=== PATIENT | male | born 1970 | race Two or more races ===

== ENCOUNTER 2022-09-21 19:30 | Emergency (ER) | payer OTHER, SELFPAY ==
[2022-09-21 19:38] VITALS: BP 122/79; PULSE 79; RESP 16; TEMP 36.6; O2SAT 98; BMI 33.1
--- NOTE | 2022-09-21 19:40 | ED.NURSE ---
Patient's right ear irrigated with 250ml warm water. Large amount of yellow brown material was flushed out.
--- NOTE | 2022-09-21 19:51 | ED_ITS ---
HPI - General Adult General Chief complaint: Ear/Nose/Throat Problem Stated complaint: right ear pain Time Seen by Provider: 09/21/22 19:40 Source: patient and family Mode of arrival: ambulatory Limitations: no limitations History of Present Illness HPI narrative: 51-year-old male coming in today complaining of ear pain. Patient states that has been going on for about 2 weeks. He was seen in [place] on the 12 of September prescribed Ciprodex ear drops. States he has been using any felt he got little bit better but then his symptoms returned. He complains of discomfort on the right side and muffled hearing. No other systemic symptoms. Related Data Previous Rx's Medication Instructions Recorded [id number] 3.3 4 drp otic (ear) 5XD 7 days #10 mL 09/21/22 mg-3 mg-10 mg-0.5 mg/mL ear drops,susp (Cortisporin-TC) Allergies Allergy/AdvReac Type Severity Reaction Status Date / Time No Known Drug Allergies Allergy Verified 09/21/22 19:38 Review of Systems Status of ROS: Reports: 10 or more systems reviewed and unremarkable except as noted in History and below Exam Narrative: Exam Narrative: Well-nourished well-developed patient in no acute distress. Alert and oriented. Answers questions appropriately. Mood and affect are appropriate. Patient speaks in full sentences without needing to catch his breath. Voice sounds normal. HEENT: Normocephalic atraumatic. Pupils are equally round reactive to light. Extraocular muscles are intact. Conjunctivae are moist without any icterus noted. Moist mucous membranes. Posterior pharynx is normal. Neck is soft. Left TM is normal. Right TM is obscured by a lot of debris that is whitish in color. His ear canal does not appear to be swollen or Rian 10 did. Skin: Well perfused without any obvious rashes. Const: Vital Signs, click to edit/add: Vital Signs - 24 hr 09/21/22 19:38 Temperature 97.8 F Pulse Rate [Left P ulse Oximeter] 79 Respiratory Rate 16 Blood Pressure [Ri ght Upper Arm] 122/79 Pulse Oximetry 98 Oxygen Delivery Me thod Room Air Course Course Hospital Course: The right ear was irrigated with a large amount of debris cleaned out. Re-ex amination reveals white cell debris still present in the ear canal. Ear drum is irritated but there does not appear to be any fluid behind the eardrum. Exam is consistent with an otitis externa. Vital Signs Vital signs: Initial Vital Signs Temperature 97.8 F 09/21/22 19:38 Temperature Source Temporal Artery Scan 09/21/22 19:38 Pulse Rate 79 09/21/22 19:38 Pulse Rhythm Regular 09/21/22 19:38 Respiratory Rate 16 09/21/22 19:38 Blood Pressure 122/79 09/21/22 19:38 Blood Pressure Mean 93 09/21/22 19:38 Blood Pressure Position Sitting 09/21/22 19:38 Pulse Oximetry 98 09/21/22 19:38 Oxygen Delivery Method Room Air 09/21/22 19:38 Vital Signs Temperature 97.8 F 09/21/22 19:38 Pulse Rate 79 09/21/22 19:38 Respiratory Rate 16 09/21/22 19:38 Blood Pressure 122/79 09/21/22 19:38 Pulse Oximetry 98 09/21/22 19:38 Oxygen Delivery Method Room Air 09/21/22 19:38 Temperature 97.8 F 09/21/22 19:38 Pulse Rate 79 09/21/22 19:38 Respiratory Rate 16 09/21/22 19:38 Blood Pressure 122/79 09/21/22 19:38 Pulse Oximetry 98 09/21/22 19:38 Oxygen Delivery Method Room Air 09/21/22 19:38 Medical Decision Making MDM Narrative Medical decision making narrative: 51-year-old male with a right-sided otitis externa. Patient was given Ciprodex ear drops last week however he was only using them twice a day. We discussed using in 5 times a day, lying on his side for 10 minutes after using it each time to wait for the medicine to penetrate. Patient understands these directions, has no other concerns and will follow up with primary care in 7-10 days if he is not improving. Discharge Plan Discharge Clinical Impression: Otitis externa Patient Disposition: Home, Self-Care Condition: Stable Additional Instructions: Use medications 5 times per day. Lay on your left side when he use the medication use 4 drops into the ear canal and let sit in place for 10 minutes before getting. Follow-up with primary care physician in the clinic in 7-10 days if you are not improving. Prescriptions: New Cortisporin-TC 3.3-3-10-0.5 mg/mL drops,suspension 4 drp otic (ear) 5XD 7 Days Qty: 10 0RF Stand Alone Forms: MyHealth Info Instructions
== END 2022-09-21 20:25 | disposition home or self-care (01) ==
LOC: ED 20:23
PROVIDERS: Emergency Provider Family Medicine
DX: H60.91 Unspecified otitis externa, right ear (principal)
CPT/HCPCS: 99282; 99283; 99284